=== PATIENT | male | born 1980 | race Caucasian/White ===

== ENCOUNTER → 2016-12-28 | Outpatient (CLI) | payer BC ==
--- NOTE | 2016-12-28 16:57 | KCIC ---
MRI cervical spine without contrast December 28, 2016 INDICATION: Left radiculopathy COMPARISON: None available TECHNIQUE: Multiplanar, multisequence MR imaging of the cervical spine is performed without intravenous contrast. Coronal and sagittal reformats are provided. FINDINGS: Alignment cervical spine is normal. Marrow signal intensity is normal in all sequences. Craniocervical junction is normal. Cord signal is normal on all sequences. Visualized portions of the posterior fossa appear normal. There is no prevertebral soft tissue swelling. Personal soft tissues are within normal limits. C2-C3: Disc is normal in configuration. Mild left facet arthropathy. No uncovertebral joint arthropathy. No neuroforaminal or spinal canal stenosis. C3-C4: Disc is normal in configuration. Mild facet arthropathy. No uncovertebral joint arthropathy. No neuroforaminal or spinal canal stenosis. C4-C5: There is disc height loss with central disc extrusion extending caudally along the posterior margin of the C5 vertebral body. Findings result in moderate spinal canal stenosis and indenting of the left hemicord. No significant facet arthropathy. Mild left uncovertebral joint arthropathy. Mild left neural foraminal stenosis. C5-C6: Mild posterior disc osteophyte complex. No significant facet or uncovertebral joint arthropathy. No neural foraminal stenosis. Mild spinal canal stenosis. C6-C7: Disc is normal in configuration. No significant facet or uncovertebral joint arthropathy. No neuroforaminal or spinal canal stenosis. C7-T1: Disc is normal in configuration. No facet or uncovertebral joint arthropathy. No neuroforaminal or spinal canal stenosis. IMPRESSION: 1. There is a central disc extrusion at C4-C5 extending caudally to the level of the inferior endplate of C5. Findings indent the left hemicord and results in moderate spinal canal stenosis. Mild left neural foraminal stenosis secondary to mild uncovertebral arthropathy. 2. Mild posterior disc osteophyte complex at C5-C6 with mild spinal canal stenosis. Electronically signed by: Jahaira Prescott MD (12/28/2016 4:53 PM) [id number]
== END | disposition home or self-care (01) ==
LOC: KCIC MRI 15:59
PROVIDERS: ATTEND Family Medicine
DX: M54.12 Radiculopathy, cervical region (principal); M48.02 Spinal stenosis, cervical region; M50.221 Other cervical disc displacement at C4-C5 level; M25.78 Osteophyte, vertebrae
CPT/HCPCS: 72141